=== PATIENT | female | born 1975 | race Caucasian/White ===

== ENCOUNTER 2016-11-21 14:44 | Emergency (ER) | payer OTHER, BC ==
--- NOTE | 2016-11-21 14:49 | PDOC ---
History of Present Illness - History of Present Illness Initial Comments: 11/21/16 14:51 Patient is a 41 year old female with no significant medical hx who is presenting to the ED for right thumb injury that occurred one hour ago. Today the patient was attempting to open a window when it slipped and fell on the joint of her right thumb. The patient complains of blood blisters to the thumb and reports having difficulty extending the digit due to pain. The patient is right hand dominant. <Silke Sepulveda - Last Filed: 11/21/16 15:33> - General History Source: Patient Exam Limitations: No Limitations <Clayton Vaughn - Last Filed: 11/21/16 15:40> - General Chief Complaint: Injury Stated Complaint: RT THUMB INJURY Time Seen by Provider: 11/21/16 14:47 Past History <Silke Sepulveda - Last Filed: 11/21/16 15:33> <Clayton Vaughn - Last Filed: 11/21/16 15:40> - Past Medical History Allergies/Adverse Reactions: Allergies Allergy/AdvReac Type Severity Reaction Status Date / Time No Known Allergies Allergy Verified 11/21/16 14:45 Home Medications: Ambulatory Orders NK [No Known Home Medication] 11/21/16 Review of Systems - Review of Systems Comments:: 11/21/16 14:53 GENERAL/CONSTITUTIONAL: No fever or chills. No weakness. HEAD, EYES, EARS, NOSE AND THROAT: No change in vision. No ear pain or discharge. No sore throat. CARDIOVASCULAR: No chest pain or shortness of breath. RESPIRATORY: No cough, wheezing, or hemoptysis. GASTROINTESTINAL: No nausea, vomiting, diarrhea or constipation. GENITOURINARY: No dysuria, frequency, or change in urination. MUSCULOSKELETAL: Right thumb pain, swelling, redness and blood blisters. No neck or back pain. SKIN: No rash NEUROLOGIC: No headache, vertigo, loss of consciousness, or change in strength/ sensation. <Silke Sepulveda - Last Filed: 11/21/16 15:33> *Physical Exam - Physical Exam Comments: 11/21/16 14:54 GENERAL: Awake, alert, and fully oriented, in no acute distress HEAD: No signs of trauma EYES: PERRLA, EOMI, sclera anicteric, conjunctiva clear ENT: Auricles normal inspection, hearing grossly normal, nares patent, oropharynx clear without exudates. Moist mucosa NECK: Normal ROM, supple, no lymphadenopathy, JVD, or masses LUNGS: Breath sounds equal, clear to auscultation bilaterally. No wheezes, and no crackles HEART: Regular rate and rhythm, normal S1 and S2, no murmurs, rubs or gallops ABDOMEN: Soft, nontender, normoactive bowel sounds. No guarding, no rebound. No masses EXTREMITIES: Normal range of motion, no lower extremity edema. No clubbing or cyanosis. No cords RIGHT HAND: 2 + radial pulse sensation intact to the median, radian, and ulnar nerve. No tenderness to the wrist. No tenderness to the metacarpal heads. Small blood blister quarter by quarter cm of the dorsum surface of the IP joint. Can flex with IP but cannot extend IP fully. NEUROLOGICAL: Cranial nerves II through XII grossly intact. Normal speech, normal gait SKIN: Warm, Dry, normal turgor, no rashes or lesions noted. ENDOCRINE: No increased thirst. No abnormal weight change. HEMATOLOGIC/LYMPHATIC: No anemia, easy bleeding, or history of blood clots. ALLERGIC/IMMUNOLOGIC: No hives or skin allergy. <Silke Sepulveda - Last Filed: 11/21/16 15:33> Procedures - Splinting Splint Type: Yes: Finger (right thumb in finger splint in full extension.) <Clatyon Vaughn - Last Filed: 11/21/16 15:40> ED Treatment Course - RADIOLOGY Radiograph Interpretation: 11/21/16 15:33 Finger X-Ray Impression: Soft tissue swelling and flexion of the IP joint of the thumb. See discussion. Reported By: Yonas Block MD <Silke Sepulveda - Last Filed: 11/21/16 15:33> - RADIOLOGY Radiology Studies Ordered: Category Date Time Status FINGER(S) RIGHT [RAD] Stat Radiology 11/21/16 14:47 Ordered <Clayton Vaughn - Last Filed: 11/21/16 15:40> Medical Decision Making - Medical Decision Making 11/21/16 14:48 A portion of this note was documented by scribe services under my direction. I have reviewed the details of the note, within reason, and agree with the documentation with the following case summary and management plan written by me. Patient treated in the ED. Nursing notes are reviewed and incorporated into the medical decision-making. Vital signs reviewed. Peripheral IV access obtained by the nurse, laboratory studies are drawn and sent, reviewed and interpreted by myself. 41-year-old female with no medical history, [id number], was opening a window when the window fell and landed on her IP joint of her right thumb. Denies numbness or weakness. Reports difficulty extending her right thumb secondary to pain. Patient is neurovascular intact. I suspect the patient has a mallet finger. We' ll obtain an x-ray to rule out first digit fracture. Patient states that she has an IUD. 11/21/16 15:37 X-ray reviewed. There is a mild soft tissue swelling over the dorsal aspect of the IP joint of the right thumb. No acute fracture dislocation is seen. The IP joint appears flex and recommended clinical correlation for fixed deformity for possible extensor tendon injury. The patient was placed in a finger splint with the right IP joint and full extension. I struck the patient to not remove the splint and elevate the hands. Ice as needed. Naproxen and/or Tylenol as needed for pain. I started that is important that she follows up with a hand surgeon for further evaluation. I discussed the physical exam findings, ancillary test results and final diagnoses with the patient. I answered all of the patient's questions. The patient was satisfied with the care received and felt comfortable with the discharge plan and treatment plan. The patient will call their primary care physician within 24 hours to arrange follow-up and will return to the Emergency Department with any new, persistant or worsening symptoms. <Clayton Vaughn - Last Filed: 11/21/16 15:40> *DC/Admit/Observation/Transfer - Attestations Scribe Attestion: 11/21/16 14:56 Documentation prepared by Silke Sepulveda, acting as forensic medical examiner for Clayton Vaughn MD. <Silke Sepulveda - Last Filed: 11/21/16 15:33> - Discharge Dispostion Admit: No <Clayton Vaughn - Last Filed: 11/21/16 15:40> Diagnosis at time of Disposition: Mallet finger of right finger(s) - Discharge Dispostion Disposition: HOME Condition at time of disposition: Improved - Referrals Referrals: Jamie Davey MD [Staff Physician] - Tigre Cosby MD [Staff Physician] - - Patient Instructions Printed Discharge Instructions: DI for Mallet Finger Additional Instructions: Please leave the finger in the splint in full extension. Cover your hand when you shower. Make an appointment with a hand surgeon. Call to schedule an appointment. Ice as needed. Elevate the hand as much as you can. Take 440 mg of Aleve (two tablets of 220 mg) every 12 hours and/or 650 mg tylenol every 4 hours as needed for pain.
[2016-11-21 14:52] VITALS: BP 125/79; PULSE 80; TEMP 98.5; BMI 24.1
[2016-11-21] MEDS ORDERED: NAPROXEN 500 MG TABLET (FP) PO ONE (15:21)
[2016-11-21] MEDS ORDERED: NAPROXEN 500 MG TABLET (FP) ONE (15:22)
== END 2016-11-21 15:50 | disposition home or self-care (01) ==
LOC: FER 14:44
PROC: 2W3GX1Z Immobilization of Right Thumb using Splint (ICD-10-PCS; principal; 2016-11-21)
DX: M20.011 Mallet finger of right finger(s) (principal); X58.XXXA Exposure to other specified factors, initial encounter; Y93.89 Activity, other specified; Y92.9 Unspecified place or not applicable
CPT/HCPCS: 73140-TC-RT; 99282-25

== ENCOUNTER 2018-01-25 22:22 | Emergency (ER) | payer BC, OTHER ==
[2018-01-25 22:36] VITALS: BP 101/65; PULSE 79; TEMP 98.5; BMI 31.4
--- NOTE | 2018-01-25 23:09 | PDOC ---
History of Present Illness - General Chief Complaint: Injury Stated Complaint: LT ANKLE PAIN History Source: Patient - History of Present Illness Initial Comments: 01/26/18 01:40 blunt trauma to L ankle . pain worsening over time Timing/Duration: 1-3 hours Severity: moderate Modifying Factors: improves with: immobilization Associated Symptoms: denies: fever/chills, nausea/vomiting Past History - Past Medical History Allergies/Adverse Reactions: Allergies Allergy/AdvReac Type Severity Reaction Status Date / Time No Known Allergies Allergy Verified 11/21/16 14:45 Home Medications: Ambulatory Orders Ibuprofen [Advil -] 400 mg PO ONCE 01/25/18 Oxycodone HCl/Acetaminophen [Percocet 5-325 mg Tablet] 1 - 2 tab PO Q6H PRN #8 tab MDD 8 tabs 01/25/18 Oxycodone HCl/Acetaminophen [Percocet 5-325 mg Tablet] 1 - 2 tab PO Q6H PRN #8 tablet MDD 8 tabs 01/25/18 COPD: No - Immunization History Immunization Up to Date: Yes - Suicide/Smoking/Psychosocial Hx Smoking History: Never smoked Have you smoked in the past 12 months: No Hx Alcohol Use: No Drug/Substance Use Hx: No Substance Use Type: None Review of Systems - Review of Systems All Other Systems: Reviewed and Negative *Physical Exam - Vital Signs Last Vital Signs Temp Pulse Resp BP Pulse Ox 98.5 F 79 16 101/65 97 01/25/18 22:30 01/25/18 22:30 01/25/18 22:30 01/25/18 22:30 01/25/18 22:30 - Physical Exam General Appearance: Yes: Nourished, Appropriately Dressed Lymphatic: negative: Adenopathy Musculoskeletal: positive: Other (L ankle tender over lateral malleolus, no other francesca tenderness). negative: Decreased Range of Motion Extremity: positive: Normal Capillary Refill Integumentary: positive: Normal Color Neurologic: negative: Sensory Deficit ED Treatment Course - RADIOLOGY Radiology Studies Ordered: Category Date Time Status ANKLE & FOOT-LEFT* [RAD] Stat Radiology 01/25/18 22:26 Completed Medical Decision Making - Medical Decision Making 01/26/18 01:41 ankle contusion analgesia crutches *DC/Admit/Observation/Transfer Diagnosis at time of Disposition: Contusion of ankle, left Qualifiers: Encounter type: initial encounter Qualified Code(s): S90.02XA - Contusion of left ankle, initial encounter - Discharge Dispostion Disposition: HOME Condition at time of disposition: Stable - Prescriptions Prescriptions: Oxycodone HCl/Acetaminophen [Percocet 5-325 mg Tablet] 1 - 2 tab PO Q6H PRN #8 tablet MDD 8 tabs PRN Reason: ankle pain Oxycodone HCl/Acetaminophen [Percocet 5-325 mg Tablet] 1 - 2 tab PO Q6H PRN #8 tab MDD 8 tabs PRN Reason: ankle pain - Referrals Referrals: Jesus Green MD [Primary Care Provider] - - Patient Instructions Printed Discharge Instructions: DI for Contusion - Post Discharge Activity
== END 2018-01-25 23:39 | disposition home or self-care (01) ==
LOC: FER 22:22
DX: S90.02XA Contusion of left ankle, initial encounter (principal); X58.XXXA Exposure to other specified factors, initial encounter; Y93.9 Activity, unspecified; Y92.9 Unspecified place or not applicable
CPT/HCPCS: 73610-TC-LT-FY; 73630-TC-LT; 99282-25

== ENCOUNTER 2018-08-13 08:58 | Emergency (ER) | payer BC ==
--- NOTE | 2018-08-13 09:01 | PDOC ---
History of Present Illness - General Chief Complaint: Lightheaded Stated Complaint: HEADACHE, DIZZY, VOMITING Time Seen by Provider: 08/13/18 09:00 History Source: Patient Exam Limitations: No Limitations - History of Present Illness Initial Comments: 08/13/18 09:16 42y F no pmhx presents with complaint of dizziness. The pt notes she started to feel unwell on monday, feeling very nauseus and vomiting multiple times and slept most of the day. She endorses having a mild headache during the day which resolved along with her vomiting by monday and she was feeling better. however when she woke up today, she noted she felt very dizzy when she moved her head, particularly when she looked to the right. pt notes she had some double vision earlier when she woke up that resolved after a few minutes. Pt nots when she is sitting still, she feels alittle nauseus but not dizzy. denie sany dysarthria, numbness/tingling/weakness, enck pain, back pain, cp, sob, palpitations, abd pain, diarrhea, melena, bpr. pt with IUD and does not get regular periods. never had similar sypmtoms before. Past History - Past Medical History Allergies/Adverse Reactions: Allergies Allergy/AdvReac Type Severity Reaction Status Date / Time No Known Allergies Allergy Verified 08/13/18 08:59 Home Medications: Ambulatory Orders Has An Iud 08/13/18 Meclizine HCl [Antivert -] 25 mg PO TID PRN #15 tablet 08/13/18 Ondansetron [Zofran -] 4 mg PO TID PRN #14 tablet 08/13/18 COPD: No - Immunization History Immunization Up to Date: Yes - Suicide/Smoking/Psychosocial Hx Smoking History: Never smoked Have you smoked in the past 12 months: No Hx Alcohol Use: No Drug/Substance Use Hx: No Substance Use Type: None Review of Systems - Review of Systems Able to Perform ROS?: Yes Comments:: 08/13/18 09:20 Constitutional - no reported Fever, Chills, HEENT: no reported vision changes, sore throat Respiratory: no reported cough, sob, hemoptysis Cardiac: no reported chest pain, palpitations, light headedness, leg swelling Abd/GI: + nausea, vomiting, no reported abd pain, blood per rectum, melena, diarrhea : no reported dysuria, frequency, discharge Musculskelatal - no reported back pain, joint swelling skin - no reported bruising, erythema, rash neurological: +vertigo/dizziness no reported headache, numbness, focal weakness , tingling, ataxia, hematologic: no reported easy bruising, easy bleeding *Physical Exam - Physical Exam Comments: 08/13/18 09:21 GENERAL: The patient is awake, alert, and fully oriented, Nontoxic - in no acute distress. HEAD: Normocephalic, atraumatic. EYES: extraocular movements intact, sclera anicteric, conjunctiva clear. ENT: Normal voice, Moist mucous membranes. NECK: Normal range of motion, supple LUNGS: Breath sounds equal, clear to auscultation bilaterally. No wheezes, no rhonchi, no rales. HEART: Regular rate and rhythm, normal S1 and S2 without murmur, rub or gallop. ABDOMEN: Soft, nontender, normoactive bowel sounds. No guarding, no rebound. . No CVA tenderness EXTREMITIES: Normal range of motion, no edema. No clubbing or cyanosis. No cords, erythema, or tenderness. PSYCH: Normal mood, normal affect. SKIN: Warm, Dry, normal turgor, NEURO: Mental status: The patient is oriented x3. Cranial nerves: Cranial nerves II through XII are intact Motor: The upper extremities are 5 over 5 in all muscle groups. The lower extremities are 5 over 5 in all muscle groups. Negative pronator drift Sensation: Sensation is intact to light touch throughout. romberg negative Cerebellar: Mzawkn-waivrw-sizi is normal in both upper extremities. rapid alternating movements are normal. Gait: deferred Heart Score/ECG Review - ECG Impressions Comment:: 08/13/18 10:53 Twelve-lead EKG was performed and reviewed by me. There is normal sinus rhythm with a normal rate. Rate of 75 The axis is normal. The intervals are normal. There is normal R wave progression There are no ST or T wave abnormalities. Impression: Normal twelve-lead EKG ED Treatment Course - LABORATORY CBC & Chemistry Diagram: 08/13/18 09:20 08/13/18 09:20 Medical Decision Making - Medical Decision Making 08/13/18 09:21 Suspect the patient's symptoms secondary to vertigo Normal neurologic exam without any lateralizing findings nor signing suggestive of cerebellar dysfunction Will give fluids Reglan meclizine for symptomatically relief Check labs EKG to rule out anemia, metabolic derangements, , arrhythmia She is still persistently symptomatic consider CT brain 08/13/18 10:52 pt feels improved but ntos she feels 'strangh' and alittle unsettled ?akethesia secondary to regaln? will give her some benadryl will reasses ekg wnl 08/13/18 12:09 pt feeling improved able ambulate, look around no longer vertignous normal repeat neuro exam including finger to nose and rapid alternating mveoments 08/13/18 13:05 pts urine showd 3+ LE, but pti sotherwise asytpmatic will defer treatment, possible contaminent - as pt ntose she didnt whipe before giving the Urine will dc with pmd fu return precautions were discusse I discussed the physical exam findings, ancillary test results and final diagnoses with the patient. I answered all of the patient's questions. The patient was satisfied with the care received and felt comfortable with the discharge plan and treatment plan. The patient will call their primary care physician within 24 hours to arrange follow-up and will return to the Emergency Department with any new, persistent or worsening symptoms. *DC/Admit/Observation/Transfer Diagnosis at time of Disposition: Vertigo - Discharge Dispostion Disposition: HOME Condition at time of disposition: Improved Decision to Admit order: No - Referrals Referrals: Jesus Green MD [Primary Care Provider] - Danny Ramirez MD [Staff Physician] - - Patient Instructions Printed Discharge Instructions: DI for Vertigo Additional Instructions: Return to the emergency department immediately with ANY new, persistent or worsening symptoms including any headache, difficulty with your vision or with speaking, neck pain, back pain or other concerns. Take the meclizine as prescribed and the zofran if you are nauseus. You MUST call and follow up with your doctor in 3-4 days for further evaluation of your symptoms. Results were discussed with you. Please make sure your doctor reviews the results of your emergency evaluation. Print Language: S[place]AP[place]AN - Post Discharge Activity
[2018-08-13 09:05] VITALS: BP 111/73; PULSE 85; TEMP 98; BMI 29.8
[2018-08-13] MEDS ORDERED: MECLIZINE HCL 25 MG TABLET (FP) PO ONE (09:16)
[2018-08-13] MEDS ORDERED: SODIUM CHLORIDE 1,000 ML IV ONE (09:16)
[2018-08-13] MEDS ORDERED: METOCLOPRAMIDE HCL INJECTION 10 MG/2 ML VIAL IVPUSH ONE (09:16)
[2018-08-13] MEDS ORDERED: MECLIZINE HCL 25 MG TABLET (FP) ONE (09:30)
[2018-08-13 09:47] LABS: BASO % 0.4 % (0-2.0); EOS % 0.3 % (0-4.5); HEMATOCRIT 41.6 % (32.4-45.2); HEMOGLOBIN 13.9 GM/dl (10.7-15.3); MCH 30.8 pg (25.7-33.7); MCHC 33.5 g/dl (32.0-36.0); MEAN CELL VOLUME 91.8 fl (80-96); MEAN PLT VOLUME 11.4 fl (7.5-11.1); MONO % 6.6 % (3.8-10.2); NEUT % 75.7 % (42.8-82.8); RBC 4.53 M/mm3 (3.60-5.2); RDW 10.9 % (11.6-15.6); WHITE BLOOD COUNT 6.2 K/mm3 (4.0-10.8)
[2018-08-13 10:01] LABS: ALBUMIN 3.6 g/dl (3.5-5.0); ALK PHOS 43 U/L (32-92); ANION GAP 6 MMOL/L (8-16); BILIRUBIN,TOTAL 0.9 mg/dl (0.2-1.0); BLOOD UREA NITROGEN 10 mg/dl (7-18); CALCIUM 8.7 mg/dl (8.4-10.2); CHLORIDE 104 mmol/L (98-107); CO2 24 mmol/L (22-28); GLUCOSE,RANDOM 128 mg/dl (74-106); POTASSIUM 3.9 mmol/L (3.5-5.1); SGOT/AST 21 U/L (10-42); SGPT/ALT 34 U/L (10-40); SODIUM 134 mmol/L (136-145); TOT PROT 6.8 g/dl (6.4-8.3)
[2018-08-13 10:07] LABS: CREATININE < 0.6 mg/dl (0.6-1.3)
[2018-08-13] MEDS ORDERED: ONDANSETRON 4 MG/2 ML VIAL IVPB ONE (10:52)
[2018-08-13] MEDS ORDERED: ONDANSETRON 4 MG/2 ML VIAL ONE (10:53)
[2018-08-13 10:56] LABS: PLATELET COUNT 205 K/MM3 (134-434)
[2018-08-13 12:42] LABS: URINE APPEARANCE Clear; URINE BILIRUBIN Negative (NEGATIVE); URINE COLOR Yellow; URINE GLUCOSE (UA) Negative (NEGATIVE); URINE KETONE Negative (NEGATIVE); URINE LEUK ESTERASE 3+ (NEGATIVE); URINE NITRITE Negative (NEGATIVE); URINE PROTEIN Negative (NEGATIVE); URINE UROBILINOGEN 0.2 (0.2-1.0)
[2018-08-13 12:49] LABS: HCG,QUALITATIVE URINE Negative
[2018-08-13 13:19] LABS: URINE RBC 0-2 /hpf (0-3)
[2018-08-13 13:20] LABS: EPI CELLS 1+ /HPF; URINE BACTERIA 2+ /hpf (NEGATIVE)
== END 2018-08-13 13:40 | disposition home or self-care (01) ==
LOC: FER 08:58
PROC: 3E033GC Introduction of Other Therapeutic Substance into Peripheral Vein, Percutaneous Approach (ICD-10-PCS; principal; 2018-08-13)
PROC: 3E0337Z Introduction of Electrolytic and Water Balance Substance into Peripheral Vein, Percutaneous Approach (ICD-10-PCS; 2018-08-13)
DX: R42 Dizziness and giddiness (principal)
CPT/HCPCS: 36415; 80053; 81003; 81015; 84703; 85025; 99284-25; J7030

== ENCOUNTER 2018-08-16 08:24 | Emergency (ER) | payer BC ==
[2018-08-16 08:28] VITALS: BMI 29.0
[2018-08-16 08:31] VITALS: BP 115/75; PULSE 83; TEMP 97.7
[2018-08-16] MEDS ORDERED: ONDANSETRON 4 MG/2 ML VIAL IVPB ONE (08:46)
[2018-08-16] MEDS ORDERED: SODIUM CHLORIDE 1,000 ML IV STA (08:46)
[2018-08-16] MEDS ORDERED: MECLIZINE HCL 25 MG TABLET (FP) PO ONE (08:47)
[2018-08-16] MEDS ORDERED: ONDANSETRON 4 MG/2 ML VIAL ONE (08:51)
--- NOTE | 2018-08-16 08:54 | PDOC ---
History of Present Illness - General Chief Complaint: Nausea/Vomiting Stated Complaint: VERTIGO,N/V Time Seen by Provider: 08/16/18 08:30 - History of Present Illness Initial Comments: 08/16/18 08:48 42 F with no PMH presents to ED with room-spinning dizziness. Pt states that her symptoms started 5 days ago, and she came to this ER 4 days ago for same complaint. Pt states that her symptoms were initially very severe, with associated nausea and vomiting. Pt was started on meclizine and reglan, which she states helped at the time. Pt was able to go home and felt significantly better. However, today pt reports that her symptoms recurred, and she began to feel nauseous again. She took her meclizine and reglan but vomited them up. Pt otherwise denies any new complaints. No CP/SOB. No ÁLVAREZ. No neck pain. No weakness/numbness/tingling. Past History - Past Medical History Allergies/Adverse Reactions: Allergies Allergy/AdvReac Type Severity Reaction Status Date / Time No Known Allergies Allergy Verified 08/16/18 08:25 Home Medications: Ambulatory Orders Has An Iud 08/13/18 Meclizine HCl [Antivert -] 25 mg PO TID PRN #15 tablet 08/13/18 Ondansetron [Zofran -] 4 mg PO TID PRN #14 tablet 08/13/18 COPD: No Other medical history: VERTIGO - Immunization History Immunization Up to Date: Yes - Suicide/Smoking/Psychosocial Hx Smoking History: Never smoked Have you smoked in the past 12 months: No Hx Alcohol Use: No Drug/Substance Use Hx: No Substance Use Type: None Review of Systems - Review of Systems Comments:: 08/16/18 08:53 GENERAL/CONSTITUTIONAL: No fever or chills. No weakness. HEAD, EYES, EARS, NOSE AND THROAT: No change in vision. No ear pain or discharge. No sore throat. CARDIOVASCULAR: No chest pain or shortness of breath. RESPIRATORY: No cough, wheezing, or hemoptysis. GASTROINTESTINAL: No nausea, vomiting, diarrhea or constipation. GENITOURINARY: No dysuria, frequency, or change in urination. MUSCULOSKELETAL: No joint or muscle swelling or pain. No neck or back pain. SKIN: No rash NEUROLOGIC: +room-spinning dizziness, No headache, loss of consciousness, or change in strength/sensation. ENDOCRINE: No increased thirst. No abnormal weight change. HEMATOLOGIC/LYMPHATIC: No anemia, easy bleeding, or history of blood clots. ALLERGIC/IMMUNOLOGIC: No hives or skin allergy. *Physical Exam - Vital Signs Last Vital Signs Temp Pulse Resp BP Pulse Ox 97.7 F 83 17 115/75 99 08/16/18 08:25 08/16/18 08:25 08/16/18 08:25 08/16/18 08:25 08/16/18 08:25 - Physical Exam Comments: 08/16/18 08:54 GENERAL: Awake, alert, and fully oriented, in no acute distress. HEAD: No signs of trauma EYES: PERRLA, EOMI, sclera anicteric, conjunctiva clear ENT: Auricles normal inspection, hearing grossly normal, nares patent, oropharynx clear without exudates. Moist mucosa NECK: Nontender, no stepoffs, Normal ROM, supple, no lymphadenopathy, JVD, or masses LUNGS: Breath sounds equal, clear to auscultation bilaterally. No wheezes, and no crackles HEART: Regular rate and rhythm, normal S1 and S2, no murmurs, rubs or gallops ABDOMEN: Soft, nontender, normoactive bowel sounds. No guarding, no rebound. No masses EXTREMITIES: Normal range of motion, no edema. No clubbing or cyanosis. No cords, erythema, or tenderness NEUROLOGICAL: Cranial nerves II through XII intact. 5/5 strength and sensation in all extremities, Normal speech, normal gait, normal cerebellar function SKIN: Warm, Dry, normal turgor, no rashes or lesions noted. Medical Decision Making - Medical Decision Making 08/16/18 08:54 42 F with room-spinning dizziness, on and off x 5 days. Likely BPPV. Pt with no neuro deficits on exam, normal cerebellar tests, consistent with peripheral vertigo. Pt with no stroke risk factors, no exam findings concerning for CVA, and no cardiac murmur to suggest septal defect. - UA, UPT given previous contaminated UA - IVF, meclizine, zofran - Reassess 08/16/18 10:32 UA negative Pt reassessed - now feels significantly better Ambulatory in ED with steady gait Neuro exam continues to be non-focal. Pt is well appearing, with normal vitals. Clinically stable for DC at this time. I discussed the physical exam findings, ancillary test results and final diagnoses with the patient. I answered all of the patient's questions. The patient was satisfied with the care received and felt comfortable with the discharge plan and treatment plan. The patient agrees to follow up with the primary care physician within 24-72 hours. *DC/Admit/Observation/Transfer Diagnosis at time of Disposition: Vertigo - Discharge Dispostion Disposition: HOME Condition at time of disposition: Stable - Referrals Referrals: Jesus Green MD [Primary Care Provider] - Jose Lee MD [Staff Physician] - - Patient Instructions Printed Discharge Instructions: DI for Vertigo Additional Instructions: Your symptoms are likely due to a condition called vertigo. Most often, this is an inner ear issue. Sometimes, this can be due to a stroke. We do not have any reason to believe that you had a stroke. However, you should follow up with a neurologist for further evaluation of your symptoms to rule out any serious diseases. If you experience worsening dizziness, headache, vomiting, or any other concerning symptoms, return to the ER immediately. Otherwise, call the number provided to make an appointment with our neurologist within 1 week. - Post Discharge Activity - Attestations Physician Attestion: 08/16/18 10:35 I, Dr. Manuel Warner MD, attest that this document has been prepared under my direction and personally reviewed by me in its entirety. I further attest, that it accurately reflects all work, treatment, procedures and medical decision -making performed by me.
[2018-08-16] MEDS ORDERED: MECLIZINE HCL 25 MG TABLET (FP) ONE (09:10)
[2018-08-16 10:12] LABS: PH,URINE 8.5 (4.5-8); URINE APPEARANCE Cloudy; URINE BILIRUBIN Negative (NEGATIVE); URINE COLOR Yellow; URINE GLUCOSE (UA) Negative (NEGATIVE); URINE KETONE Negative (NEGATIVE); URINE LEUK ESTERASE Negative (NEGATIVE); URINE NITRITE Negative (NEGATIVE); URINE PROTEIN Negative (NEGATIVE); URINE UROBILINOGEN 0.2 (0.2-1.0)
[2018-08-16 10:18] LABS: HCG,QUALITATIVE URINE Negative
== END 2018-08-16 10:42 | disposition home or self-care (01) ==
LOC: FER 08:24
PROC: 3E033GC Introduction of Other Therapeutic Substance into Peripheral Vein, Percutaneous Approach (ICD-10-PCS; principal; 2018-08-16)
PROC: 3E0337Z Introduction of Electrolytic and Water Balance Substance into Peripheral Vein, Percutaneous Approach (ICD-10-PCS; 2018-08-16)
DX: R42 Dizziness and giddiness (principal)
CPT/HCPCS: 81003; 84703; 87086; 99282-25; J7030

== ENCOUNTER 2020-09-30 17:25 | Emergency (ER) | payer BC | END 2020-09-30 20:03 | disposition home or self-care (01) | LOC: JVIRT 17:25 | DX: Z03.818 Encounter for observation for suspected exposure to other biological agents ruled out (principal); J02.9 Acute pharyngitis, unspecified; R53.83 Other fatigue | CPT/HCPCS: C9803; G2012-GT; U0003 ==

== ENCOUNTER 2020-10-15 10:56 | Emergency (ER) | payer BC | END 2020-10-15 11:59 | disposition home or self-care (01) | LOC: JVIRT 10:56 | DX: Z03.818 Encounter for observation for suspected exposure to other biological agents ruled out (principal) | CPT/HCPCS: C9803; G2012-GT; U0003 ==

== ENCOUNTER 2022-02-19 16:14 | Emergency (ER) | payer BC, OTHER ==
[2022-02-19 16:30] VITALS: BP 116/63; PULSE 73; TEMP 98.4; BMI 31.6
== END 2022-02-19 19:07 | disposition home or self-care (01) ==
LOC: FER 16:14
DX: S06.0X0A Concussion without loss of consciousness, initial encounter (principal); S16.1XXA Strain of muscle, fascia and tendon at neck level, initial encounter; W22.8XXA Striking against or struck by other objects, initial encounter
CPT/HCPCS: 70450-TC; 72050-TC-FY; 99285-25